=== PATIENT | female | born 1995 | race Caucasian/White ===

== ENCOUNTER 2017-12-02 18:08 | Emergency (ER) | payer BC, OTHER ==
[2017-12-02] MEDS ORDERED: Ondansetron INJ* 2 MG/ML VIAL IV ONE (18:39)
[2017-12-02] MEDS ORDERED: Morphine VIAL* 10 MG/ML 1 ML VIAL IV ONE ×2 (18:39→19:51)
[2017-12-02 19:00] LABS: Hematocrit 43 % (35-47); Hemoglobin 14.3 g/dl (12.0-16.0); Mean Corpuscular HGB Conc 34 g/dl (31-36); Mean Corpuscular Hemoglobin 30 pg (27-31); Mean Corpuscular Volume 89 fL (80-97); Mean Platelet Volume 7.7 um3 (7.4-10.4); Platelet Count 318 10^3/ul (150-450); Red Cell Distribution Width 13 % (10.5-15); White Blood Count 15.2 10^3/ul (3.5-10.8)
[2017-12-02 19:22] LABS: EGFR Non-African American 77.8 (>60)
--- NOTE | 2017-12-02 19:35 | RAD ---
EXAM: CT Head Without Intravenous Contrast CLINICAL HISTORY: 22 years old, female; Injury or trauma; Fall; Initial encounter; Unconscious; Additional info: Fall from height, loc TECHNIQUE: Axial computed tomography images of the head/brain without intravenous contrast. All CT scans at this facility use at least one of these dose optimization techniques: automated exposure control; mA and/or kV adjustment per patient size (includes targeted exams where dose is matched to clinical indication); or iterative reconstruction. COMPARISON: No relevant prior studies available. FINDINGS: Brain: Unremarkable. No hemorrhage. No significant white matter disease. No edema. Ventricles: Unremarkable. No ventriculomegaly. Bones/joints: There is acute fractures of bilateral zygomas. Soft tissues: Unremarkable. Sinuses: Unremarkable as visualized. No acute sinusitis. Mastoid air cells: Unremarkable as visualized. No mastoid effusion. Orbits: There is seen in the bilateral intraconal region of bilateral orbits. IMPRESSION: No acute intracranial abnormality. Acute fractures of bilateral zygomas. There is air in bilateral orbits. Please see dedicated CT of the maxillofacial of the same date for details.
--- NOTE | 2017-12-02 19:45 | RAD ---
EXAM: CT Cervical Spine Without Intravenous Contrast CLINICAL HISTORY: 22 years old, female; Injury or trauma; Fall; Initial encounter; Unconscious; Additional info: Fall, neck vs gymnastics bar TECHNIQUE: Axial computed tomography images of the cervical spine without intravenous contrast. All CT scans at this facility use at least one of these dose optimization techniques: automated exposure control; mA and/or kV adjustment per patient size (includes targeted exams where dose is matched to clinical indication); or iterative reconstruction. Coronal and sagittal reformatted images were created and reviewed. COMPARISON: No relevant prior studies available. FINDINGS: Vertebrae: There is a subtle lucency through the left anterior arch of C2 vertebra the which may represent a nondisplaced hairline fracture versus nutrient foramina. No spondylolisthesis. Mild straightening of the cervical spine. Discs/spinal canal/neural foramina: See above. Soft tissues: Unremarkable. Lung apices: Unremarkable as visualized. IMPRESSION: There is a subtle lucency through the left anterior arch of C2 vertebra which may represent a nondisplaced hairline fracture versus a nutrient foramina. MRI is suggested for further evaluation.
--- NOTE | 2017-12-02 19:54 | ED ---
Adult Trauma - HPI Summary HPI Summary: This patient is a 22 year old F presenting to [facility] accompanied by a friend and the color strainer with a chief complaint of facial trauma and pain since 1714. The pt was doing gymnastics and messed up her dismount, hitting the back of her neck on the bar, and then hitting her knee into her face upon landing in the foam pit. She denies neck pain, dental pain, loose teeth, and emesis. She endorses facial pain, swelling, ecchymosis, epistaxis, jaw pain (L worse than R ) with DROM, and LOC. - History of Current Complaint Chief Complaint: EDHeadInjury Stated Complaint: FALL/FACIAL INJURY Time Seen by Provider: 12/02/17 18:24 Hx Obtained From: Patient Mechanism of Injury: Blunt Trauma - bar to posterior neck, knee to face Loss of Consciousness: brief (seconds) Force: Direct Onset/Duration: Started Hours Ago, Traumatic, Still Present Onset of Pain: Immediate, Post Accident, Prior to Arrival Onset Severity: Moderate Current Severity: Moderate Location: Head, Other - face Aggravating Factor(s): Movement, Other - jaw ROM Alleviating Factor(s): Nothing Associated Signs & Symptoms: Positive: Loss of Consciousness, Ecchymosis, Other : - epistaxis, facial edema, jaw pain. Negative: Fever - Allergy/Home Medications Allergies/Adverse Reactions: Allergies Allergy/AdvReac Type Severity Reaction Status Date / Time Penicillins Allergy Unknown Verified 12/02/17 18:54 Reaction Details PMH/Surg Hx/FS Hx/Imm Hx Endocrine/Hematology History: Denies: Hx Sickle Cell Disease Cardiovascular History: Denies: Hx Pacemaker/ICD Respiratory History: Denies: Hx Lung Cancer GI History: Denies: Hx Ileostomy History: Denies: Hx Dialysis Musculoskeletal History: Denies: Hx Osteoporosis Sensory History: Denies: Hx Legally Blind, Hx Deafness Opthamlomology History: Denies: Hx Legally Blind EENT History: Denies: Hx Deafness Neurological History: Denies: Hx Dementia Psychiatric History: Denies: Hx Schizophrenia - Immunization History Immunizations Up to Date: Yes Infectious Disease History: Denies: Traveled Outside the [place] in Last 30 Days - Family History Known Family History: Negative: Blood Disorder - Social History Occupation: Student Lives: Dormitory/Roommates Alcohol Use: None Substance Use Type: Reports: None Smoking Status (MU): Never Smoked Tobacco Review of Systems Negative: Fever, Chills Negative: Erythema Negative: Sore Throat Negative: Chest Pain Negative: Shortness Of Breath, Cough Negative: Abdominal Pain, Vomiting, Nausea Negative: dysuria, hematuria Positive: Arthralgia - jaw, Myalgia - face, jaw, Decreased ROM - jaw, Edema - facial Positive: Bruising. Negative: Rash Neurological: Other - NEGATIVE: Dizziness Positive: Headache, Syncope - LOC All Other Systems Reviewed And Are Negative: Yes Physical Exam - Summary Physical Exam Summary: Constitutional: Well-developed, Well-nourished, Alert. (-) Distressed Skin: Warm, Dry HENT: Swelling in bilateral cheeks, L worse than R. Diffuse facial TTP, bilateral infraorbital tenderness, left-sided jaw tenderness at angle of the jaw with DROM. Septum midline, no active bleeding from nose. Mouth clear of blood. Ears clear of CSF. Eyes: Conjunctiva normal, nl EOM, PERRL Neck: Musculoskeletal ROM normal neck. (-) JVD, (-) Stridor, (-) Tracheal deviation. C-collar in place, neck non-tender. Cardio: Rhythm regular, rate normal, Heart sounds normal; Intact distal pulses; The pedal pulses are 2+ and symmetric. Radial pulses are 2+ and symmetric. (-) Murmur Pulmonary/Chest wall: Effort normal. (-) Respiratory distress, (-) Wheezes, (-) Rales Abd: Soft, (-) epigastric tenderness, (-) Distension, (-) Guarding, (-) Rebound Musculoskeletal: (-) Edema. All extremities FROM and 5/5 motor strength, DROM jaw, TTP at left mandibular angle. Lymph: (-) Cervical adenopathy Neuro: Alert, Oriented x3 Psych: Mood and affect Normal Triage Information Reviewed: Yes Vital Signs On Initial Exam: Initial Vitals Temp Pulse Resp BP Pulse Ox 97.6 F 62 16 131/82 100 12/02/17 18:18 12/02/17 18:18 12/02/17 18:18 12/02/17 18:18 12/02/17 18:18 Vital Signs Reviewed: Yes Diagnostics - Vital Signs Vital Signs Temp Pulse Resp BP Pulse Ox 12/02/17 18:53 16 12/02/17 18:43 65 15 99 12/02/17 18:41 60 18 131/80 99 12/02/17 18:18 97.6 F 62 16 131/82 100 - Laboratory Lab Results: Lab Results 12/02/17 12/02/17 Range/Units 18:50 18:50 WBC 15.2 H (3.5-10.8) 10^3/ul RBC 4.80 (4.00-5.40) 10^6/ul Hgb 14.3 (12.0-16.0) g/dl Hct 43 (35-47) % MCV 89 (80-97) fL MCH 30 (27-31) pg MCHC 34 (31-36) g/dl RDW 13 (10.5-15) % Plt Count 318 (150-450) 10^3/ul MPV 7.7 (7.4-10.4) um3 Sodium 139 (135-145) mmol/L Potassium 3.4 L (3.5-5.0) mmol/L Chloride 106 (101-111) mmol/L Carbon Dioxide 24 (22-32) mmol/L Anion Gap 9 (2-11) mmol/L BUN 14 (6-24) mg/dL Creatinine 0.92 (0.51-0.95) mg/dL Est GFR ( Amer) 94.2 (>60) Est GFR (Non-Af Amer) 77.8 (>60) BUN/Creatinine Ratio 15.2 (8-20) Glucose 118 H (70-100) mg/dL Calcium 9.3 (8.6-10.3) mg/dL Total Bilirubin 0.30 (0.2-1.0) mg/dL AST 19 (13-39) U/L ALT 14 (7-52) U/L Alkaline Phosphatase 64 (34-104) U/L Total Protein 7.2 (6.4-8.9) g/dL Albumin 4.4 (3.2-5.2) g/dL Globulin 2.8 (2-4) g/dL Albumin/Globulin Ratio 1.6 (1-3) Result Diagrams: 12/02/17 18:50 12/02/17 18:50 Lab Statement: Any lab studies that have been ordered have been reviewed, and results considered in the medical decision making process. - CT Brain CT Interpretation: Positive (See Comments) CT Interpretation Completed By: Radiologist - No acute intracranial abnormality. Acute fractures of bilateral zygomas. There is air in bilateral orbits. Please see dedicated CT of the maxillofacial of the same date for details. Dr. Burgess has reviewed this report. C-Spine CT Interpretation: Positive (See Comments) CT Interpretation Completed By: Radiologist - There is a subtle lucency through the left anterior arch of C2 vertebra which may represent a nondisplaced hairline fracture versus a nutrient foramina. MRI is suggested for further evaluation. Dr. Burgess has reviewed this report. Maxillo-facial CT Interpretation: Positive (See Comments) CT Interpretation Completed By: Radiologist - Multiple acute fractures involving bilateral maxillary sinuses, bilateral orbits, zygoma and medial and lateral pterygoids and other fractures as described above. Dr. Burgess has reviewed this report. Re-Evaluation - Re-Evaluation First Eval Re-Evaluation Time: 19:59 Change: Unchanged Comment: Asked pt multiple times about contacting her mother, she continually deferred to the ice skating coach, they both decided not to tell her at the moment as it would distract and upset her. Adult Trauma Course/Dx - Course Course Of Treatment: A 22-year-old F presents to the ED with a CC of facial trauma since 1714. (+) jaw pain, L worse than R, facial ecchymosis. (-) neck pain. Gymnastics, posterior neck hit bar, knee hit face. A CT MF reveals Multiple acute fractures involving bilateral maxillary sinuses, bilateral orbits , zygoma and medial and lateral pterygoids and other fractures as described above. A CT brain reveals no acute intracranial abnormality. Acute fractures of bilateral zygomas. There is air in bilateral orbits. A CT c-spine reveals There is a subtle lucency through the left anterior arch of C2 vertebra which may represent a nondisplaced hairline fracture versus a nutrient foramina. In the ED course, pt was given morphine, zofran. Pt's labs show abnl WBC, K+, and glucose. Asked pt multiple times about contacting her mother, she continually deferred to the ice skating coach, they both decided not to tell her at the moment as it would distract and upset her. - Diagnoses Provider Diagnoses: Inferior rectus muscle entrapment, Bilateral orbit fractures, C2 cervical fracture, Maxillary sinus fracture - Physician Notifications Discussed Care Of Patient With: Dr. Tyrone KNIGHT Time Discussed With Above Provider: 20:00 Instructed by Provider To: Other - Per Natalie RN, accepts transfer to [facility] Reason For Transfer: Specialty or service not available at [facility] [place] - Critical Care Time Critical Care Time: 30-74 min - 45 Discharge - Sign-Out/Discharge Documenting (check all that apply): Patient Departure - transfer - Discharge Plan Condition: Fair Disposition: TRANS HIGHER LVL OF CARE FAC Referrals: No Primary Care Phys,NOPCP [Primary Care Provider] - - Attestation Statements Document Initiated by Scribe: Yes Documenting Scribe: Anatoly Cortés Provider For Whom Scribe is Documenting (Include Credential): Dr. Maximo Burgess MD Scribe Attestation: IAnatoly, scribed for Dr. Maximo Burgess MD on 12/02/17 at 2031.
--- NOTE | 2017-12-02 20:13 | RAD ---
EXAM: CT Maxillofacial Without Intravenous Contrast CLINICAL HISTORY: 22 years old, female; Injury or trauma; Fall; Initial encounter; Unconscious; Additional info: Facial swelling S/P fall/blunt force trauma TECHNIQUE: Axial computed tomography images of the face without intravenous contrast. All CT scans at this facility use at least one of these dose optimization techniques: automated exposure control; mA and/or kV adjustment per patient size (includes targeted exams where dose is matched to clinical indication); or iterative reconstruction. Coronal and sagittal reformatted images were created and reviewed. COMPARISON: No relevant prior studies available. FINDINGS: Bones/joints: The mandible is intact without fracture or dislocation. Acute fracture of the zygomatic process of left temporal bone. Left Orbit:There is acute fracture of the left lateral, floor and medial wall of the left orbit. The medial and floor of the left orbital fracture is comminuted with intraorbital air. Possible entrapment of the inferior rectus and fat. Fracture of the left lamina papyracea. Right Orbit:There is acute fracture of the floor and medial wall of the right orbit with intraorbital air. Clinical correlation with intraorbital musculature entrapment. Left Maxillary Sinus:There is comminuted fracture of the anterior, posterior and the medial wall of the left maxillary sinus. There is layering of hemorrhagic fluid in the left maxillary sinus. Right MAxillary Sinus:There is acute comminuted fracture of the left anterior, posterior and medial santoro of the right maxillary sinus with hemorrhagic fluid layering in the right maxillary sinus. There is fracture of the bilateral lateral and medial pterygoids. Acute fracture of bilateral zygoma. Acute fracture of the bony nasal septum. Acute fracture of the left inferior nasal and bilateral middle shilpa. There is fluid and the secretions in bilateral sphenoid sinuses. Extensive mucosal thickening of the bilateral ethmoid sinuses. Soft tissues: There is extensive edema and emphysema involving the bilateral pre-maxillary, left greater than right. Orbits: Bilateral globes appear intact. There is foci of air inside the bilateral orbits. IMPRESSION: Multiple acute fractures involving bilateral maxillary sinuses, bilateral orbits, zygoma and medial and lateral pterygoids and other fractures as described above.
[2017-12-02 20:51] VITALS: BP 120/72
== END 2017-12-02 20:51 | disposition short-term general hospital (02) ==
LOC: ED 18:08
DX: S02.82XA Fracture of other specified skull and facial bones, left side, initial encounter for closed fracture (principal); S02.81XA Fracture of other specified skull and facial bones, right side, initial encounter for closed fracture; S12.100A Unspecified displaced fracture of second cervical vertebra, initial encounter for closed fracture; S39.091A Other injury of muscle, fascia and tendon of abdomen, initial encounter; W22.8XXA Striking against or struck by other objects, initial encounter; Y93.43 Activity, gymnastics; Y92.9 Unspecified place or not applicable; Z88.0 Allergy status to penicillin
CPT/HCPCS: 36415; 70450; 70486; 72125; 80053; 85027; 96374; 96375; 96376; 99284; J2270; J2405